=== PATIENT | female | born 1980 | race Two or more races ===

== ENCOUNTER 2020-02-23 10:06 | Inpatient (IN) | payer MEDICAID ==
[~2020-02-23] VITALS: Ht 160 cm; Wt 61.7 kg
--- NOTE | 2020-02-23 10:12 | NUR ---
FRANCES86, FROM STREET, C/O FLU LIKE SX X1 WEEK AND ABSCESS ON BUTTOCKS, TO ER BED 8, HOOKED TO MONITOR, VSS. CHANGED TO HOSP GOWN, WARM BLANKET PROVIDED, PATIENT AAO x 4, AWAITING MD BREWSTER
--- NOTE | 2020-02-23 10:16 | NUR ---
PATIENT VERBALIZED SUICIDAL THOUGHTS TO OVERDOSE. SAFETY MEASURES APPLIED. SITTER AT BEDSIDE FOR SAFETY
--- NOTE | 2020-02-23 10:25 | NUR ---
DR DUARTE AT BEDSIDE
[2020-02-23] MEDS ORDERED: CEPHALEXIN MONOHYDRATE 500 MG CAPSULE PO ONE ×2 (10:30→10:37)
[2020-02-23] MEDS ORDERED: HYDROCODONE/APAP 5/325MG TABLET PO ONE (10:30)
[2020-02-23] MEDS ORDERED: SULFAMETH/TRIMETH 800/160 MG 1 UDTAB TABLET PO ONE (10:30)
[2020-02-23] MEDS ORDERED: HYDROCODONE/APAP 5/325MG TABLET ONE (10:36)
[2020-02-23] MEDS ORDERED: SULFAMETH/TRIMETH 800/160 MG 1 UDTAB TABLET ONE (10:37)
[2020-02-23 11:02] LABS: BASOPHILS # (AUTO) 0.1 /CMM (0.0-0.2); BASOPHILS % (AUTO) 0.6 % (0.0-2.0); EOSINOPHILS % (AUTO) 0.3 % (0.0-6.0); HEMATOCRIT 44 % (33-45); HEMOGLOBIN 14.3 g/dL (11.5-14.8); LYMPHOCYTES % (AUTO) 16.9 % (20.0-44.0); MEAN CORPUSCULAR HGB CONC 33 g/dl (31.0-36.0); MEAN CORPUSCULAR VOLUME 89 fL (82-100); MONOCYTES # (AUTO) 0.7 /CMM (0.1-1.30); MONOCYTES % (AUTO) 5.8 % (2.0-12.0); NEUTROPHILS # (AUTO) 9.1 /CMM (1.8-8.9); NEUTROPHILS % (AUTO) 76.4 % (43.0-81.0); PLATELET COUNT (AUTO) 345 /CMM (150-450); RED BLOOD CELL COUNT(AUTO) 4.94 MIL/uL (4.0-5.2)
[2020-02-23 11:30] LABS: ACETAMINOPHEN 1 ug/ml (10-30); ALANINE AMINOTRANSFERASE 51 U/L (12-78); ALBUMIN 2.9 g/dL (3.4-5.0); ALCOHOL, BLOOD < 3 mg/dL (0-0); ALKALINE PHOSPHATASE 90 U/L (46-116); ASPARTATE AMINOTRANSFERASE 48 U/L (15-37); BILIRUBIN,DIRECT 0.1 mg/dL (0.0-0.2); BILIRUBIN,TOTAL 0.3 mg/dL (0.2-1.0); CALCIUM, SERUM 9.3 mg/dL (8.5-10.1); CARBON DIOXIDE 24 mmol/L (21-32); CHLORIDE 98 mmol/L (98-107); CREATININE 0.8 mg/dL (0.6-1.3); GLUCOSE 103 mg/dL (74-106); SODIUM SERUM 136 mmol/L (136-145); UREA NITROGEN, BLOOD 6 mg/dL (7-18)
[2020-02-23 11:34] LABS: POTASSIUM 2.7 mmol/L (3.5-5.1)
[2020-02-23] MEDS ORDERED: POTASSIUM CHLORIDE 20 MEQ TAB.PRT.SR PO ONE ×2 (12:00)
--- NOTE | 2020-02-23 12:07 | NUR ---
RAPID COVID SWAB AND PCR DONE AND SENT TO LAB
--- NOTE | 2020-02-23 12:18 | NUR ---
PATIENT IN BED ASLEEP, EASILY AROUSABLE BY VOICE. HOOKED TO MONITOR. VSS. WILL CONTINUE TO MONITOR ACCORDINGLY. SITTER AT BEDSIDE FOR SAFETY.
[2020-02-23] MEDS ORDERED: VANCOMYCIN 1 GM in IV D5W 250 ML IV ONE (13:00)
[2020-02-23] MEDS ORDERED: PIPERACILLIN /TAZOBACTAM 3.375 G in IV D5W 50 ML IV ONE (13:00)
[2020-02-23] MEDS ORDERED: IV PREMIX 0.45% NS + KCL 1,000 ML IV ONE (13:00)
--- NOTE | 2020-02-23 14:22 | NUR ---
PATIENT IN BED ASLEEP, EASILY AROUSABLE BY VOICE. HOOKED TO MONITOR. VSS. WILL CONTINUE TO MONITOR ACCORDINGLY. SITTER AT BEDSIDE FOR SAFETY.
[2020-02-23] MEDS ORDERED: MAG HYDROX/AL HYDROX/SIMETH 30 ML UDC PO PRN (14:30)
[2020-02-23] MEDS ORDERED: ONDANSETRON HCL/PF 4 MG/2 ML VIAL IVP PRN (14:30)
[2020-02-23] MEDS ORDERED: TEMAZEPAM 15 MG CAPSULE PO PRN (14:30)
[2020-02-23] MEDS ORDERED: ACETAMINOPHEN 325 MG TABLET PO PRN (14:30)
[2020-02-23] MEDS ORDERED: Z GUARD REMEDY 2 OZ OINT TP PRN (14:30)
--- NOTE | 2020-02-23 15:25 | NUR ---
urine sample collected and sent to lab
--- NOTE | 2020-02-23 15:27 | NUR ---
PER HOUSE SUP, PATIENT WILL STAY IN ER UNTIL THERE IS AVAILABLE SITTER.
[2020-02-23 16:18] LABS: APPEARANCE,URINE SL CLOUDY (CLEAR); BILIRUBIN,URINE MODERATE (NEGATIVE); BLOOD, URINE MODERATE Ery/uL (NEGATIVE); COLOR,URINE YELLOW (YELLOW); KETONES,URINE 40 (NEGATIVE); LEUKOCYTE ESTERASE ,URINE NEGATIVE (NEGATIVE); NITRITE, URINE NEGATIVE (NEGATIVE); PH,URINE 6.5 (5.0-8.0); PROTEIN,URINE TRACE mg/dl (NEGATIVE); UGLUCOSE NEGATIVE (NEGATIVE)
[2020-02-23 16:27] LABS: BACTERIA,URINE 1+ /HPF (None Seen)
--- NOTE | 2020-02-23 17:47 | NUR ---
DINNER PROVIDED, TOLERATED PO WELL.
--- NOTE | 2020-02-23 18:26 | NUR ---
PATIENT IN BED ASLEEP, EASILY AROUSABLE BY VOICE. HOOKED TO MONITOR. VSS. WILL CONTINUE TO MONITOR ACCORDINGLY. SITTER AT BEDSIDE FOR SAFETY.
--- NOTE | 2020-02-23 19:00 | NUR ---
bed [id number]
--- NOTE | 2020-02-23 19:11 | NUR ---
REPORT GIVEN TO KAITLYN RAYMUNDO OF MS UNIT
--- NOTE | 2020-02-23 19:12 | NUR ---
REPORT GIVEN TO JONATAN RAYMUNDO FOR DAVID
[2020-02-23 19:30] VITALS: BP 127/70
--- NOTE | 2020-02-23 21:22 | NUR ---
PER MED SURG 2 NURSE PT WILL BE IN -2 INSTEAD.
[2020-02-23] MEDS: IV NS 0.9% 1,000 ML IV PRN (22:20)
[2020-02-23] MEDS ORDERED: PIPERACILLIN /TAZOBACTAM 3.375 G VIAL IV ONE ×2 (22:34→22:35)
[2020-02-23] MEDS ORDERED: VANCOMYCIN 1 GM VIAL ONE (22:35)
[2020-02-23] MEDS: HYDROCODONE/APAP 10/325MG TABLET PO PRN (22:45)
[2020-02-23] MEDS: VANCOMYCIN 1 GM in IV D5W 250 ML IV SCH (22:48)
--- NOTE | 2020-02-23 23:40 | NUR ---
[facility]. PATIENT WAS AWAKE, ALERT, ORIENTED, MADE COMFORTABLE IN BED, TAUGHT THE USE OF CALL LIGHT AND PLACED IT AT BEDSIDE WITHIN REACH, ADMISSION DONE PER PROTOCOL, PHOTOS OF THE WOUNDS WERE TAKEN, PLAN OF CARE DISCUSSED AND VERBALIZED UNDERSTANDING AND AGREEMENT TO THE PLAN OF CARE, ADMISSION ORDERS WERE CARRIED OUT. WILL MONITOR.
[2020-02-24] MEDS: PIPERACILLIN /TAZOBACTAM 3.375 G in IV D5W 50 ML IV SCH ×7 (00:12→23:31)
--- NOTE | 2020-02-24 01:30 | NUR ---
MS2/RN PATIENT WAS ENDORSED TO ZACKARY HARRIS, FOR CONTINUITY OF CARE.
[2020-02-24] MEDS: VANCOMYCIN 1 GM in IV D5W 250 ML IV SCH ×2 (05:48→15:36)
--- NOTE | 2020-02-24 06:20 | NUR ---
MS RN CLOSING NOTES PATIENT RESTING IN BED COMFORTABLY; A/OX4, BREATHING EVEN AND UNLABORED; NO SOB NOTED; TOLERATING ROOM AIR WELL; NO DISTRESS NOTED; PATIENT ABLE TO MAKE NEEDS KNOWN; PATIENT AMBULATORY WITH STEADY GAIT; SITTER AT BEDSIDE; R AC # 18, INTACT AND PATENT; SOLATION PRECAUTIONS MAINTAINED; SAFETY PRECAUTIONS IMPLEMENTED; BED LOCKED IN LOW POSITION; SIDE RAILSX2; CALL LIGHT WITHIN REACH; WILL ENDORSE DAVID TO ONCOMING SHIFT
[2020-02-24 06:51] LABS: BASOPHILS % (AUTO) 0.3 % (0.0-2.0); EOSINOPHILS % (AUTO) 1.8 % (0.0-6.0); HEMATOCRIT 35 % (33-45); HEMOGLOBIN 11.6 g/dL (11.5-14.8); LYMPHOCYTES # (AUTO) 1.9 /CMM (0.8-4.8); LYMPHOCYTES % (AUTO) 24.4 % (20.0-44.0); MEAN CORPUSCULAR HGB CONC 33 g/dl (31.0-36.0); MEAN CORPUSCULAR VOLUME 88 fL (82-100); MONOCYTES # (AUTO) 0.8 /CMM (0.1-1.30); MONOCYTES % (AUTO) 10.5 % (2.0-12.0); PLATELET COUNT (AUTO) 334 /CMM (150-450); RED BLOOD CELL COUNT(AUTO) 3.99 MIL/uL (4.0-5.2); WHITE BLOOD COUNT (AUTO) 7.9 K/uL (4.3-11.0)
--- NOTE | 2020-02-24 07:30 | NUR ---
MS/RN OPENING NOTE Patient resting in bed, A&O X 4. Denies any pain and discomfort at this time. Breathing even and non-labored on RA, no SOB noted. No cardiac distress noted. IV access noted on RAC #18, patent and intact, and flushing well. Sensation from all peripheral extremities intact. Bed locked to its lowest position, side rails x 2 up, call light in hand. Will continue with current medical management.
[2020-02-24 08:01] LABS: CALCIUM, SERUM 8.1 mg/dL (8.5-10.1); CREATININE 0.6 mg/dL (0.6-1.3); MAGNESIUM 1.6 mg/dL (1.8-2.4); PHOSPHORUS 2.6 mg/dL (2.5-4.9)
[2020-02-24 08:24] LABS: POTASSIUM 2.7 mmol/L (3.5-5.1)
[2020-02-24] MEDS: HYDROCODONE/APAP 10/325MG TABLET PO PRN ×2 (08:41→18:26)
--- NOTE | 2020-02-24 09:30 | NUR ---
MS/RN MARQUEZ Mishra, nursing switchboard operator supervisor, faxed psych consult to Dr. Arevalo.
[2020-02-24] MEDS ORDERED: POTASSIUM CHLORIDE 20 MEQ TAB.PRT.SR PO ONE (09:45)
[2020-02-24] MEDS ORDERED: Magnesium 1GM/D5W 100ML PREMIX PIGGYBACK IV ONE (09:45)
--- NOTE | 2020-02-24 10:22 | NUR ---
WOUND CA4RE CONSULT: REVIEWED CHART, NURSING DOCUMENTATION AND PHOTOS WHICH INDICATE DRY WOUNDS, PRESENT ON ADMISSION. SPOKE WITH RN WHO REPORTS INDURATION TO RT BUTTOCK, PRESENT ON ADMISSION. DISCUSSED WITH DR LUKE WHO WILL CALL FOR SURGICAL CONSULT WITH DR GARCIA.
[2020-02-24] MEDS: IV NS 0.9% 1,000 ML IV PRN (10:30)
[2020-02-24] MEDS ORDERED: hydrOXYzine PAMOATE 25 MG CAPSULE PO PRN (10:30)
[2020-02-24] MEDS: POTASSIUM CL. PREMIX PERIPHER. 50 ML IV SCH ×4 (11:33→16:11)
[2020-02-24] MEDS: GABAPENTIN 300 MG CAPSULE PO SCH ×3 (11:34→16:11)
[2020-02-24] MEDS: QUETIAPINE FUMARATE 100 MG TABLET PO SCH ×4 (11:34→20:59)
[2020-02-24] MEDS ORDERED: INFLUENZA VACCINE 2020-21 0.5 ML DISP.SYRIN IM ONE (12:30)
--- NOTE | 2020-02-24 13:50 | NUR ---
Special Shopper consult requested by Keon Núñez MD for homelessness. Patient is currently on COVID-19 floor as a precaution pending PCR. SW attempted to conduct Special Shopper assessment via patient's hospital telephone. Patient answered and notified this SW that patient need a few minutes to use the restroom. SW to follow up with the patient.
[2020-02-24] MEDS: LITHIUM CARBONATE (300 MG CAP) 300 MG CAPSULE PO SCH ×2 (14:20→16:11)
--- NOTE | 2020-02-24 14:28 | NUR ---
Side Gluer attempted to speak with the patient via patient's hospital phone. Patient did not pick up operator. SW to speak with patient RN and attempt again.
--- NOTE | 2020-02-24 14:32 | NUR ---
MS/RN NOTE Patient agrees to have flu vaccination, administered flu vaccine on Right arm. Will continue to monitor.
--- NOTE | 2020-02-24 15:21 | NUR ---
[place] confirmed with patient ZACKARY Dutton that patient is interviewable at this time. ZACKARY Dutton transferred this SW to the patient's hospital phone and informed the patient that this SW was on the line. Patient is a 39 year-old female. Patient confirmed date of and social security. Patient reports that she is originally from [facility]. Patient reports no family and friends at the moment. Patient reports she is homeless, and patient reports that she has been homeless for a few weeks. Patient reports that she lost wallet that contained her debit card and identifications. SW asked the patient if she had called the bank to notify them about her lost debit card, patient stated that she did call and they are aware. Patient reports that she receives $740 in social security income. 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 Patient reports wanting to be placed at [facility], patient believes this is a year-round fdc. SW informed this patient that [facility] [place] is a temporary location that is under [facility]. Patient understood and would like to be referred. SW asked more questions regarding patient's medical history to provide information regarding [facility]. Patient reports that has a history of Asthma for most of her life. SW to call [facility] to open a profile for this patient. Plan: SW to call [facility] and provide homeless resources.
[2020-02-24] MEDS: NEOMY SULF/BACITRAC ZN/POLY 15 GM TUBE TP SCH ×2 (16:11→20:59)
--- NOTE | 2020-02-24 17:00 | NUR ---
MS/RN NOTE Urine sample sent to lab.
--- NOTE | 2020-02-24 19:30 | NUR ---
MS/RN OPENING NOTE Patient resting in bed, A&O X 4. Denies any pain and discomfort at this time. Breathing even and non-labored on RA, no SOB noted. No cardiac distress noted. IV access noted on RAC #18, patent and intact, and running NS @ 125 ml/hr. Sensation from all peripheral extremities intact. Fall precautions maintained. 1:1 sitter in room. Will endorse to lieutenant shift supervisor nurse.
--- NOTE | 2020-02-24 19:45 | NUR ---
MS/RN OPENING NOTES RECEIVED PATIENT IN BED RESTING. PATIENT IS ALERT AND ORIENTED X 4. PATIENT IN NO SIGNS OF SOB OR RESPIRATORY DISTRESS. BREATHING IS EVEN AND UNLABORED. PATIENT HAS IV ACCESS ON LEFT AC RUNNING 125ML/HR. PATIENT HAS SITTER IN ROOM MONITORING PATIENT, SAFETY PRECAUTIONS IN PLACE. SAFETY MEASURES ARE IN PLACE, BED IS LOCKED AND PLACED IN THE LOW POSITION, SIDE RAILS UP X 2. CALL LIGHT IS IN EASY REACH OF PATIENT. WILL CONTINUE TO MONITOR THROUGH OUT SHIFT.
--- NOTE | 2020-02-24 19:47 | NUR ---
CORRECTION: MS/RN CLOSING NOTE Patient resting in bed, A&O X 4. Denies any pain and discomfort at this time. Breathing even and non-labored on RA, no SOB noted. No cardiac distress noted. IV access noted on RAC #18, patent and intact, and running NS @ 125 ml/hr. Sensation from all peripheral extremities intact. Fall precautions maintained. 1:1 sitter in room. Will endorse to plant utility person nurse.
[2020-02-24 20:00] VITALS: BP 101/59
[2020-02-24 20:22] LABS: CHLORIDE,URINE RANDOM 17 mmol/L (55-125); POTASSIUM RNDM,URINE 4 mmol/L (25-125); URINE SODIUM, RANDOM 11 mmol/l (40-220)
[2020-02-24] MEDS: ENOXAPARIN SODIUM 40 MG/0.4 ML DISP.SYRIN SQ SCH (21:04)
[2020-02-24 21:30] LABS: OSMOLALITY,URINE 67 mOS/kg (340-1090)
[2020-02-24] MEDS: VANCOMYCIN 0.75 GM in IV D5W 250 ML IV SCH (23:32)
[2020-02-25] MEDS: PIPERACILLIN /TAZOBACTAM 3.375 G in IV D5W 50 ML IV SCH ×4 (05:08→23:11)
[2020-02-25] MEDS: IV NS 0.9% 1,000 ML IV PRN ×2 (05:09→20:19)
--- NOTE | 2020-02-25 06:35 | NUR ---
MS/RN CLOSING NOTES PATIENT IN BED RESTING. PATIENT IS ALERT AND ORIENTED X 4. PATIENT IN NO SIGNS OF SOB OR RESPIRATORY DISTRESS. BREATHING IS EVEN AND UNLABORED. PATIENT HAS IV ACCESS ON LEFT AC RUNNING 125ML/HR. PATIENT HAS SITTER IN ROOM MONITORING PATIENT, SAFETY PRECAUTIONS IN PLACE. PATIENT IS SAFE AND FREE FROM INJURIES. ALL NEEDS HAVE BEEN MET DURING SHIFT. SAFETY MEASURES ARE IN PLACE, BED IS LOCKED AND PLACED IN THE LOW POSITION, SIDE RAILS UP X 2. CALL LIGHT IS IN EASY REACH OF PATIENT. WILL CONTINUE TO MONITOR THROUGH OUT SHIFT.
[2020-02-25 06:38] LABS: BASOPHILS % (AUTO) 0.4 % (0.0-2.0); EOSINOPHILS % (AUTO) 2.1 % (0.0-6.0); HEMATOCRIT 34 % (33-45); HEMOGLOBIN 11.1 g/dL (11.5-14.8); LYMPHOCYTES # (AUTO) 2.2 /CMM (0.8-4.8); LYMPHOCYTES % (AUTO) 33.6 % (20.0-44.0); MEAN CORPUSCULAR HGB CONC 33 g/dl (31.0-36.0); MEAN CORPUSCULAR VOLUME 90 fL (82-100); MONOCYTES # (AUTO) 0.7 /CMM (0.1-1.30); MONOCYTES % (AUTO) 10.9 % (2.0-12.0); NEUTROPHILS # (AUTO) 3.4 /CMM (1.8-8.9); PLATELET COUNT (AUTO) 276 /CMM (150-450); RED BLOOD CELL COUNT(AUTO) 3.81 MIL/uL (4.0-5.2); WHITE BLOOD COUNT (AUTO) 6.4 K/uL (4.3-11.0)
[2020-02-25 07:03] LABS: CALCIUM, SERUM 8.3 mg/dL (8.5-10.1); CREATININE 0.9 mg/dL (0.6-1.3); PHOSPHORUS 3.1 mg/dL (2.5-4.9); POTASSIUM 3.6 mmol/L (3.5-5.1)
--- NOTE | 2020-02-25 07:26 | NUR ---
MS/RN OPENING NOTES RECEIVED PATIENT IS ON BED AWAKE, ALERT AND ORIENTED X4. PATIENT IN NO APPARENT RESPIRATORY DISTRESS NOTED. DENIES PAIN AT THIS TIME. WILL CONTINUE TO MONITOR.
[2020-02-25] MEDS: QUETIAPINE FUMARATE 100 MG TABLET PO SCH ×4 (09:07→20:31)
[2020-02-25] MEDS: GABAPENTIN 300 MG CAPSULE PO SCH ×3 (09:07→17:21)
[2020-02-25] MEDS: LITHIUM CARBONATE (300 MG CAP) 300 MG CAPSULE PO SCH ×3 (09:07→17:21)
[2020-02-25] MEDS: NEOMY SULF/BACITRAC ZN/POLY 15 GM TUBE TP SCH ×3 (09:07→17:54)
--- NOTE | 2020-02-25 09:07 | NUR ---
WOUND CARE CONSULT: PT PRESENTS WITH OPEN ABRASIONS/SCRATCHES TO BUTTOCKS WELL INTACT BLISTER TO RT 5TH FINGER, PRESENT ON ADMISSION. PT DID NOT ALLOW ASSESSMENT OF LOWER EXTREMITIES. ADMISSION PHOTOS INDICATE DISCOLORATION/DRY ABRASIONS TO LOWER EXTREMITIES. RECOMMENDATIONS MADE FOR WOUND CARE AND SKIN PROTECTION. DISCUSSED WITH NURSING STAFF. MD IN AGREEMENT WITH PLAN OF CARE. Addendum: 02/25/20 at 0908 by SHANIA HIGUERA WNDNU Amended: Links added.
[2020-02-25] MEDS: VANCOMYCIN 0.75 GM in IV D5W 250 ML IV SCH ×2 (09:10→17:18)
--- NOTE | 2020-02-25 11:12 | NUR ---
RECEIVED BEDSIDE REPORT FROM CHANO (RN) MED SURG2. PT IS ALERT, AWAKE AND ORIENTED X4. NOT IN ANY ACUTE DISTRESS AT THIS TIME. IV ON LEFT AC#18 INTACT AND FLUSHED WELL. ON ONE ON ONE MONITORING DUE TO SUICIDAL IDEATION. WILL CONTINUE TO MONITOR.
--- NOTE | 2020-02-25 11:56 | NUR ---
MS/RN NOTES PATIENT IS ALERT AND ORIENTED X 3-4. PATIENT IN NO APPARENT RESPIRATORY DISTRESS NOTED. DENIES PAIN AT THIS TIME. TRANSFER TO JAIME AT 1100 FOR DAVID, REPORT WAS GIVEN TO HERO.
--- NOTE | 2020-02-25 18:17 | NUR ---
RN CLOSING NOTES PATIENT REMAINS ALERT AND ORIENTED X 3. NOT IN ANY ACUTE DISTRESS. BREATHING IS EVEN AND UNLABORED. PATIENT HAS RIGHT HAND #20G RUNNING 125ML/HR. ALL PATIENT CARE DONE DURING SHIFT. ALL PATIENTS NEEDS HAVE BEEN MET DURING SHIFT. SAFETY MEASURES ARE IN PLACE, BED IS LOCKED AND PLACED IN THE LOW POSITION, SIDE RAILS UP X 2. CALL LIGHT IS IN EASY REACH OF PATIENT. WILL ENDORSE TO NEXT SHIFT.
--- NOTE | 2020-02-25 19:45 | NUR ---
MS RN NOTES RECEIVED ON BED SLEEPING,AROUSABLE TO VERBAL STIMULI,BREATHING NON LABORED,SITTER AT BEDSIDE FOR SUICIDAL PRECAUTION.IVF NS AT 125ML/HR RATE INFUSING WELL VIA IV PUMP ON LEFT FOREARM.ENCOURAGED TO REPOSITION SELF FOR CELLULITIS ON BUTTOCKS.CALL LIGHT IN REACH,NEEDS ANTICIPATED.
[2020-02-25 20:00] VITALS: BP 109/69
[2020-02-25] MEDS: ENOXAPARIN SODIUM 40 MG/0.4 ML DISP.SYRIN SQ SCH (20:39)
--- NOTE | 2020-02-26 00:05 | NUR ---
PT REQUESTS MOM FOR LACK OF BM PAST 5 DAYS WILL CONTINUE TO MONITOR. Addendum: 02/27/20 at 0114 by ANJU BLOCK RN THIS IS FOR 02/26 @0005
[2020-02-26] MEDS: VANCOMYCIN 0.75 GM in IV D5W 250 ML IV SCH ×3 (00:07→16:46)
[2020-02-26 04:00] VITALS: BP 126/26
[2020-02-26] MEDS: PIPERACILLIN /TAZOBACTAM 3.375 G in IV D5W 50 ML IV SCH ×4 (05:41→23:16)
--- NOTE | 2020-02-26 06:13 | NUR ---
MS RN NOTES NO SIGNIFICANT CHANGE IN STATUS,A/O X3,ABLE TO WALK TO THE BATHROOM WITH STEADY,IV ABX ADMINISTERED.PAIN TOLERABLE THRU OUT SHIFT.IN NO ACUTE DISTRESS.NEEDS ATTENDED.
[2020-02-26] MEDS: IV NS 0.9% 1,000 ML IV PRN ×2 (07:19→21:35)
--- NOTE | 2020-02-26 07:20 | NUR ---
ms rn received on bed, awake,alert,oriented x4,still sleeping, does not want to be bothered, no distress noted, will monitor patient.
[2020-02-26 07:22] LABS: BASOPHILS % (AUTO) 0.4 % (0.0-2.0); HEMATOCRIT 34 % (33-45); HEMOGLOBIN 11.1 g/dL (11.5-14.8); LYMPHOCYTES # (AUTO) 1.8 /CMM (0.8-4.8); LYMPHOCYTES % (AUTO) 27.2 % (20.0-44.0); MEAN CORPUSCULAR HGB CONC 33 g/dl (31.0-36.0); MEAN CORPUSCULAR VOLUME 89 fL (82-100); MONOCYTES # (AUTO) 0.6 /CMM (0.1-1.30); MONOCYTES % (AUTO) 9.7 % (2.0-12.0); NEUTROPHILS # (AUTO) 3.9 /CMM (1.8-8.9); NEUTROPHILS % (AUTO) 59.7 % (43.0-81.0); PLATELET COUNT (AUTO) 302 /CMM (150-450); RED BLOOD CELL COUNT(AUTO) 3.82 MIL/uL (4.0-5.2); WHITE BLOOD COUNT (AUTO) 6.5 K/uL (4.3-11.0)
[2020-02-26 07:39] LABS: CALCIUM, SERUM 8.4 mg/dL (8.5-10.1); CREATININE 0.9 mg/dL (0.6-1.3); PHOSPHORUS 3.8 mg/dL (2.5-4.9); POTASSIUM 3.7 mmol/L (3.5-5.1)
[2020-02-26] MEDS: HYDROCODONE/APAP 10/325MG TABLET PO PRN ×4 (08:36→20:15)
[2020-02-26] MEDS: LITHIUM CARBONATE (300 MG CAP) 300 MG CAPSULE PO SCH ×3 (08:47→17:38)
[2020-02-26] MEDS: GABAPENTIN 300 MG CAPSULE PO SCH ×3 (08:48→17:38)
[2020-02-26] MEDS: QUETIAPINE FUMARATE 100 MG TABLET PO SCH ×4 (08:48→21:40)
[2020-02-26] MEDS: NEOMY SULF/BACITRAC ZN/POLY 15 GM TUBE TP SCH ×3 (09:00→18:47)
--- NOTE | 2020-02-26 09:45 | NUR ---
ms rn patient is awake, breakfast served,due meds given,tolerated well.
--- NOTE | 2020-02-26 15:00 | NUR ---
ms rn s/p wound debridement of right last finger by mckayla, specimen sent to lab for culture.
--- NOTE | 2020-02-26 15:16 | NUR ---
Pitch Gatherer followed up with the patient. Patient was asleep and easily arousable by verbal cues. Patient remained with her eyes closed during this assessment. Patient stated that she remembered prior conversation with this SW. Patient thanked this SW for checking-in with her again. Patient did state that she wanted to run in front of traffic to kill herself. Patient stated that she had spoken to [facility] psychiatrist, patient stated she could not remember name (Dr. Arevalo). Patient stated that once she is medically cleared, she had spoken with Dr. Arevalo that she would like to go to a voluntary psychiatric facility. SW asked patient if she remained agreeable, patient stated yes, I need the help. Patient also informed this SW that she had lost her debit card and wanted to call the bank. SW directed the patient to use hospital line to call bank, patient stated that she would call at a later time as she was sleepy. Plan: SW will follow-up with [facility] once patient is medically cleared for voluntary psychiatric treatment.
--- NOTE | 2020-02-26 18:58 | NUR ---
ms rn on bed, no distress noted,all needs attended.
--- NOTE | 2020-02-26 19:30 | NUR ---
RN OPENING NOTE PT RECEIVED RESTING IN BED. A/O X 4. FULL CODE NOTED. MED SURG MONITORING IN PLACE. ON ROOM AIR SATURATING WELL NO SIGNS OF SOB OR RESP DISTRESS. BREATHING EVEN AND UNLABORED. PT HAS GENERALIZED PAIN AT THIS TIME 01/07 WILL FOLLOW UP. IV SITE FLUSHED PATENT NS RUNNING AT 12ML/HR ORDERED. NO SIGNS OR SYMPTOMS OF INFILTRATION NOTED AT THIS TIME AT SITE. ON 1:1 OBSERVATION, SITTER AT BEDSIDE. SUICIDAL IDEATIONS RE EVALUATED. PT VERBALIZES HEARING VOICES TELLING HER TO KILL HERSELF AND WALK INTO TRAFFIC. WILL CONTINUE TO CLOSELY MONITOR. PATIENT IS COOPERATIVE WITH CARE. EATING WELL, REQUESTS SNACKS AND PAIN MEDICATION. BED IS LOCKED IN LOWEST POSITION. BED ALARM ON. CALL LIGHT WITHIN REACH. WILL CONTINUE TO MONITOR.
[2020-02-26 20:00] VITALS: BP 105/70
--- NOTE | 2020-02-26 20:03 | NUR ---
PT REQUESTS NORCO PRN FOR GENERALIZED PN 01/07.
--- NOTE | 2020-02-26 21:30 | NUR ---
PT HAS SEROQUEL SCHEDULED. VITAL SIGNS AT THIS TIME IS HR 102 BP 108/71. RR 23 O2 SAT 96. WILL CONTINUE TO MONITOR.
[2020-02-26] MEDS: ENOXAPARIN SODIUM 40 MG/0.4 ML DISP.SYRIN SQ SCH (21:42)
[2020-02-26] MEDS: MAGNESIUM HYDROXIDE 30 ML UDC PO PRN (23:16)
--- NOTE | 2020-02-27 00:05 | NUR ---
PT REQUESTS MOM FOR LACK OF BM PAST 5 DAYS WILL CONTINUE TO MONITOR.
[2020-02-27] MEDS: VANCOMYCIN 0.75 GM in IV D5W 250 ML IV SCH ×4 (00:17→23:51)
[2020-02-27 04:00] VITALS: BP 122/79
--- NOTE | 2020-02-27 04:40 | NUR ---
PT AWAKE LAB IS AT BEDSIDE. COOPERATIVE. WILL CONTINUE TO MONITOR.
[2020-02-27] MEDS: PIPERACILLIN /TAZOBACTAM 3.375 G in IV D5W 50 ML IV SCH ×4 (05:39→23:13)
[2020-02-27 07:17] LABS: BASOPHILS % (AUTO) 0.2 % (0.0-2.0); EOSINOPHILS % (AUTO) 2.8 % (0.0-6.0); HEMATOCRIT 33 % (33-45); HEMOGLOBIN 10.7 g/dL (11.5-14.8); LYMPHOCYTES # (AUTO) 1.8 /CMM (0.8-4.8); LYMPHOCYTES % (AUTO) 23.1 % (20.0-44.0); MEAN CORPUSCULAR HGB CONC 32 g/dl (31.0-36.0); MEAN CORPUSCULAR VOLUME 90 fL (82-100); MONOCYTES # (AUTO) 0.7 /CMM (0.1-1.30); MONOCYTES % (AUTO) 8.5 % (2.0-12.0); NEUTROPHILS % (AUTO) 65.4 % (43.0-81.0); PLATELET COUNT (AUTO) 291 /CMM (150-450); WHITE BLOOD COUNT (AUTO) 7.7 K/uL (4.3-11.0)
[2020-02-27 07:43] LABS: CALCIUM, SERUM 8.2 mg/dL (8.5-10.1); CREATININE 0.8 mg/dL (0.6-1.3); MAGNESIUM 1.9 mg/dL (1.8-2.4); PHOSPHORUS 3.2 mg/dL (2.5-4.9)
[2020-02-27 07:53] VITALS: BP 132/90
--- NOTE | 2020-02-27 07:58 | NUR ---
RN OPENING NOTE RECIEVED PATIENT IN BED, PATIENT IS ALERT AND ORIENTED X 4, ON ROOM AIR, COMPLAINS OF HEADACHE, NO SOB, RESPIRATION UNLABORED, L FOREARM 20 G, S 75ML/HR, SITE CLEAR, SEE NURSING FLOW SHEET FOR SKIN ISSUES, REGULAR DIET, AMBULATES WITH ASSIST, WHILE EXPLAINING PLAN OF CARE FOR THE DAY PATIENT GOT AGITATED AND UPSET, SAFETY MEASURES IN PLACE, 1TO 1 SITTER, BED IN LOWEST LOCKED POSITION, SIDE RAILS UP X2, CALL LIGHT WITHIN REACH, WILL CONTINUE TO MONITOR.
--- NOTE | 2020-02-27 07:58 | NUR ---
RN CLOSING NOTES PT IS RESTING IN BED. HAD BM 2X BUT VERBALIZED DARK STOOL DIARRHEA. ENDORSED TO AM NURSE. PT IS IN NO RESP DISTRESS OR SOB, BREATHING EVEN AND UNLABORED. NEEDS ATTENDED. NO SIGNIFICANT CHANGES THROUGHOUT MY SHIFT. PT REST WELL THROUGHOUT THE NIGHT. STILL HAVE SUICIDAL IDEATIONS. SITTER AT BEDSIDE. SAFETY MEASURES IN PLACE. BED LOCKED IN LOWEST POSITION WITH BED ALARM ON. CALL LIGHT WITHIN REACH. ENDORSED TO AM NURSE FOR CONTINUATION OF CARE.
--- NOTE | 2020-02-27 08:00 | NUR ---
RN NOTE PATIENT HAS SITTER PRESENT AT ALL TIMES DUE TO SUICIDAL IDEATION.
[2020-02-27] MEDS: QUETIAPINE FUMARATE 100 MG TABLET PO SCH ×4 (08:15→20:06)
[2020-02-27] MEDS: LITHIUM CARBONATE (300 MG CAP) 300 MG CAPSULE PO SCH ×3 (08:15→17:22)
[2020-02-27] MEDS: GABAPENTIN 300 MG CAPSULE PO SCH ×3 (08:15→17:22)
[2020-02-27] MEDS: NEOMY SULF/BACITRAC ZN/POLY 15 GM TUBE TP SCH ×3 (08:17→17:00)
[2020-02-27] MEDS: POTASSIUM CHLORIDE 20 MEQ TAB.PRT.SR PO SCH ×3 (10:34→11:54)
[2020-02-27] MEDS ORDERED: LITH300C4 PO (10:51)
[2020-02-27] MEDS ORDERED: QUET100T PO (10:51)
[2020-02-27] MEDS ORDERED: GABA300C PO (10:51)
[2020-02-27] MEDS ORDERED: Neomy Sulf/Bacitrac Zn/Poly TP (10:51)
[2020-02-27] MEDS ORDERED: HYDR-3972 PO (10:51)
[2020-02-27] MEDS ORDERED: HYDR25CA26 PO (10:51)
[2020-02-27] MEDS ORDERED: AMOX-427 PO (10:51)
--- NOTE | 2020-02-27 11:28 | NUR ---
Patient clinicals faxed to [facility] for Voluntary Psychiatric Admission. SW spoke to Can [phone] patient clinicals are under review. HARJINDER will receive a call once accepted.
[2020-02-27 12:00] VITALS: BP 119/78
--- NOTE | 2020-02-27 12:05 | NUR ---
RN NOTES RECEIVED REPORT FROM AMBROSIO RAYMUNDO. PT IS AWAKE, A/O X4. VERBALLY RESPONSIVE. IV SITE AT LFA #22 INTACT, PATENT AND FLUSHED. PT IN STABLE CONDITION. WILL CONTINUE TO MONITOR
--- NOTE | 2020-02-27 12:07 | NUR ---
RN NOTES REPORT GIVEN TO MARILYN RAYMUNDO FOR DAVID.
--- NOTE | 2020-02-27 13:11 | NUR ---
Per [facility] Ozzie Farrell, patient has been accepted at [facility] under Dr. Joshi. Jami to give this SW a call back to provide number for nurse to nurse report.
[2020-02-27] MEDS: MAGNESIUM HYDROXIDE 30 ML UDC PO PRN (15:15)
[2020-02-27] MEDS: HYDROCODONE/APAP 5/325MG TABLET PO PRN ×2 (15:16→20:07)
--- NOTE | 2020-02-27 16:00 | NUR ---
RN NOTE GAVE REPORT TO KORY AT [facility] FOR TRANSFER. REVIEWED PATIENT HISTORY, CURRENT STATUS, AND ORDER FOR 10 DAYS OF PO ANTIBIOTICS TO BE STARTED AT THE FACILITY.
[2020-02-27] MEDS: IV NS 0.9% 1,000 ML IV PRN (17:44)
--- NOTE | 2020-02-27 19:00 | NUR ---
RN NOTES PT REPORTED BLACK STOOLS THIS MORNING. INFORMED DR. LUKE. PER MD [place]. STAT CBC AND STOOL OB ORDERED.
[2020-02-27 19:22] LABS: BASOPHILS % (AUTO) 0.3 % (0.0-2.0); HEMATOCRIT 32 % (33-45); HEMOGLOBIN 10.6 g/dL (11.5-14.8); LYMPHOCYTES % (AUTO) 27.1 % (20.0-44.0); MEAN CORPUSCULAR HGB CONC 33 g/dl (31.0-36.0); MEAN CORPUSCULAR VOLUME 89 fL (82-100); MONOCYTES # (AUTO) 0.6 /CMM (0.1-1.30); MONOCYTES % (AUTO) 8.6 % (2.0-12.0); NEUTROPHILS # (AUTO) 4.5 /CMM (1.8-8.9); PLATELET COUNT (AUTO) 298 /CMM (150-450); RED BLOOD CELL COUNT(AUTO) 3.63 MIL/uL (4.0-5.2); WHITE BLOOD COUNT (AUTO) 7.4 K/uL (4.3-11.0)
--- NOTE | 2020-02-27 19:46 | NUR ---
RN CLOSING NOTE PATIENT RESTING IN BED. ALERT AND ORIENTED X 4. ON ROOM AIR SATURATING @98%. NO SOB. L FOREARM #20 , NS @75ML/HR, INFUSING WELL. REGULAR DIET. AMBULATES WITH ASSIST. SAFETY MEASURES IN PLACE. 1 TO 1 SITTER. BED IN LOWEST LOCKED POSITION WITH SIDE RAILS UP X2. CALL LIGHT WITHIN REACH. HOLD DISCHARGE. WILL ENDORSE TO NIGHT NURSE FOR DAVID.
[2020-02-27 20:00] VITALS: BP 120/78
--- NOTE | 2020-02-27 20:00 | NUR ---
MS-1/SPECIAL OFFICER SPOKE WITH DR. RAMOS REGARDING PT COMPLAINT OF BILATERAL LOWER QUADRANT ABD PAIN WITH TENDERNESS UPON PALPATION AND PT COMPLAINT OF LOOSE "BLACK" STOOL. PT CBC IS STABLE AWAITING BM TO TEST FOR OB. PER DR. RAMOS HOLD LOVENOX FOR TONIGHT AND CONTINUE TO MONITOR THE PT.
[2020-02-27] MEDS: ENOXAPARIN SODIUM 40 MG/0.4 ML DISP.SYRIN SQ SCH (20:04)
[2020-02-28] MEDS: HYDROCODONE/APAP 5/325MG TABLET PO PRN (02:00)
--- NOTE | 2020-02-28 02:09 | NUR ---
MS-1/LINE BUILDER PT AMBULATED TO THE BATHROOM WITH MINIMAL ASSISTANCE. SHANICE ARCHER REPLACED LINENS. PT PLACED BACK IN BED. CALL LIGHT WITHIN REACH, BED LOCKED SIDE RAILS UP x2. WILL CONTINUE TO MONITOR.
[2020-02-28 04:00] VITALS: BP 111/68
[2020-02-28] MEDS: IV NS 0.9% 1,000 ML IV PRN (04:12)
[2020-02-28] MEDS: PIPERACILLIN /TAZOBACTAM 3.375 G in IV D5W 50 ML IV SCH ×2 (05:25→12:02)
[2020-02-28 06:27] LABS: CALCIUM, SERUM 8.8 mg/dL (8.5-10.1); CREATININE 0.8 mg/dL (0.6-1.3); POTASSIUM 3.6 mmol/L (3.5-5.1)
--- NOTE | 2020-02-28 07:25 | NUR ---
RN OPENING NOTES RECEIVED PT IN BED, A/O X 4, ON ROOM AIR SATURATING @95%. NO SOB. L FOREARM #20 INTACT AND PATENT. NS RUNNING @75ML/HR, INFUSING WELL. REGULAR DIET. AMBULATES WITH MINIMAL ASSIST. SAFETY MEASURES IN PLACE. CALL LIGHT WITHIN REACH. BED LOCKED AND AT LOWEST POSITION WITH SIDE RAILS UP X2. WILL CONTINUE TO MONITOR.
[2020-02-28] MEDS: VANCOMYCIN 0.75 GM in IV D5W 250 ML IV SCH (08:43)
[2020-02-28] MEDS: GABAPENTIN 300 MG CAPSULE PO SCH ×2 (08:44→12:02)
[2020-02-28] MEDS: QUETIAPINE FUMARATE 100 MG TABLET PO SCH ×2 (08:44→12:02)
[2020-02-28] MEDS: LITHIUM CARBONATE (300 MG CAP) 300 MG CAPSULE PO SCH ×2 (08:44→12:02)
[2020-02-28] MEDS: NEOMY SULF/BACITRAC ZN/POLY 15 GM TUBE TP SCH ×2 (08:48)
[2020-02-28 09:35] LABS: HEMATOCRIT 31 % (33-45); HEMOGLOBIN 9.9 g/dL (11.5-14.8); MEAN CORPUSCULAR HGB CONC 32 g/dl (31.0-36.0); MEAN CORPUSCULAR VOLUME 90 fL (82-100); PLATELET COUNT (AUTO) 277 /CMM (150-450); RED BLOOD CELL COUNT(AUTO) 3.41 MIL/uL (4.0-5.2); WHITE BLOOD COUNT (AUTO) 7.6 K/uL (4.3-11.0)
[2020-02-28 12:00] VITALS: BP 117/82
--- NOTE | 2020-02-28 14:45 | NUR ---
ZACKARY MENA PT WILL BE PICKED UP BY AMBULANCE AROUND 1500. PT REFUSED PHOTO TAKEN FOR THE WOUNDS.
--- NOTE | 2020-02-28 15:30 | NUR ---
DISCHARGE NOTES PT DISCHARGED IN STABLE CONDITION. VS ARE WNL. ACCOMPANIED BY AMBULANCE CREW. REPORT WAS GIVEN TO SONIA RAYMUNDO OF [facility].
== END 2020-02-28 16:06 | DRG 383 ==
LOC: ER 10:07 → MEDSG2 19:02 → TELE1 02-25 11:10 → MEDSG1 02-25 11:21
PROVIDERS: ADMIT Nurse Practitioner Acute Care; ATTEND Student in an Organized Health Care Education/Training Program
DX: L03.317 Cellulitis of buttock (principal); L02.31 Cutaneous abscess of buttock; Z59.0 Homelessness; F15.10 Other stimulant abuse, uncomplicated; F29 Unspecified psychosis not due to a substance or known physiological condition; E87.6 Hypokalemia; J45.909 Unspecified asthma, uncomplicated; E83.42 Hypomagnesemia; F17.210 Nicotine dependence, cigarettes, uncomplicated; F10.20 Alcohol dependence, uncomplicated; F12.10 Cannabis abuse, uncomplicated; F25.0 Schizoaffective disorder, bipolar type; R45.851 Suicidal ideations; S60.426A Blister (nonthermal) of right little finger, initial encounter; L02.512 Cutaneous abscess of left hand; X58.XXXA Exposure to other specified factors, initial encounter; Y92.9 Unspecified place or not applicable; Y90.9 Presence of alcohol in blood, level not specified
CPT/HCPCS: 36415; 71045-TC; 80048-TC; 80076-TC; 80202-TC; 81000-TC; 82436-TC; 83605-TC; 83735-TC; 83935-TC; 84100-TC; 84133-TC; 84300-TC; 84703-TC; 85025-TC; 85027-TC; 87040-TC; 87070-TC; 87081-TC; 97112-TC; 97116-TC; 97530-TC; C9803; G0378; G0480; J1650; J2543; J3370; J3475; J3480; J7030; J7060; Q0177; Q2036; U0003